=== PATIENT | male | born 1975 | race Caucasian/White ===

== ENCOUNTER 2021-12-19 17:22 | Inpatient (IN) ==
[2021-12-19] MEDS ORDERED: Ipratropium/Albuterol Neb 3 ML IH ONE (17:55)
[2021-12-19] MEDS ORDERED: GuaiFENesin Liq 200 MG/10 ML UDC PO ONE (17:56)
[2021-12-19] MEDS ORDERED: Iopamidol - 370 500 ML MLS IVP ONE ×2 (17:56→17:57)
[2021-12-19] MEDS ORDERED: Ondansetron 4 MG/2 ML VIAL IVP ONE (17:58)
[2021-12-19 18:11] LABS: Basophils # 0.1 K/mcL (0.0-0.2); Basophils % 0.4 %; Eosinophils # 0.1 K/mcL (0.0-0.6); Eosinophils % 0.9 %; Hematocrit 51.8 % (37.5-50.1); Immature Granulocytes % 0.4 % (0-4); Lymphocytes # 1.8 K/mcL (0.6-4.6); Lymphocytes % 13.1 %; Mean Corpuscular HGB Conc 32.8 g/dL (31.6-35.5); Mean Corpuscular Hemoglobin 32.1 pg (28.0-33.3); Mean Corpuscular Volume 97.9 fL (83.0-100.0); Mean Platelet Volume 9.2 fL (9.4-12.4); Monocytes # 1.2 K/mcL (0.0-1.3); Monocytes % 9.1 %; Neutrophils # 10.2 K/mcL (1.6-8.9); Platelet Count 522 K/mcL (140-400); Red Blood Count 5.29 M/mcL (4.19-5.50); Segmented Neutrophils % 76.1 %; White Blood Count 13.4 K/mcL (4.3-11.1)
[2021-12-19 18:26] LABS: Calcium 8.4 mg/dL (8.6-10.3)
[2021-12-19 18:36] LABS: Troponin I 1.31 ng/mL (< 0.04)
[2021-12-19] MEDS ORDERED: cefTRIAXone 2,000 MG in 0.9 % Sodium Chloride 20 ML IVP ONE (19:52)
[2021-12-19] MEDS ORDERED: Azithromycin 500 MG in 0.9 % Sodium Chloride 250 ML IVPB ONE (19:52)
[2021-12-19] MEDS ORDERED: Aspirin 325 MG TABLET PO ONE (19:58)
[2021-12-19 20:05] LABS: Adenovirus Not Detected (Not Detect); Bordetella Pertussis Not Detected (Not Detect); Chlamydophila pneumoniae Not Detected (Not Detect); Coronavirus 229E Not Detected (Not Detect); Coronavirus HKU1 Not Detected (Not Detect); Coronavirus NL63 Not Detected (Not Detect); Coronavirus OC43 Not Detected (Not Detect); Human Metapneumovirus Not Detected (Not Detect); Human Rhinovirus/Enterovirus Not Detected (Not Detect); Influenza A Subtype 2009 H1 Not Detected (Not Detect); Influenza B Not Detected (Not Detect); Mycoplasma pneumoniae Not Detected (Not Detect); Parainfluenza Virus 1 Not Detected (Not Detect); Parainfluenza Virus 2 Not Detected (Not Detect); Parainfluenza Virus 3 Not Detected (Not Detect); Parainfluenza Virus 4 Not Detected (Not Detect); Respiratory Syncytial Virus Not Detected (Not Detect); SARS-CoV-2 Not Detected (Not Detect)
[2021-12-19] MEDS ORDERED: Melatonin 3 MG TABLET PO PRN (21:56)
[2021-12-19] MEDS ORDERED: Acetaminophen 325 MG TABLET PO PRN (21:56)
[2021-12-19] MEDS ORDERED: Furosemide 40 MG/4 ML VIAL IVP ONE (21:56)
[2021-12-19] MEDS ORDERED: Naloxone 0.4 MG/ML INJ IVP PRN (21:56)
[2021-12-19] MEDS ORDERED: Ondansetron 4 MG/2 ML VIAL IVP PRN (21:56)
[2021-12-19] MEDS ORDERED: GuaiFENesin/Codeine Oral Soln 5 ML UDC PO PRN (22:31)
[2021-12-19 23:10] LABS: INR 1.5; Prothrombin Time 16.4 Seconds (9.4-12.1)
[2021-12-19 23:12] LABS: Activated Partial Thrombo Time 28.4 Seconds (26.0-36.0)
[2021-12-20 04:47] LABS: Basophils # 0.1 K/mcL (0.0-0.2); Basophils % 0.4 %; Eosinophils # 0.1 K/mcL (0.0-0.6); Eosinophils % 0.9 %; Hematocrit 48.2 % (37.5-50.1); Immature Granulocytes % 0.4 % (0-4); Lymphocytes # 1.8 K/mcL (0.6-4.6); Mean Corpuscular HGB Conc 31.7 g/dL (31.6-35.5); Mean Corpuscular Hemoglobin 31.2 pg (28.0-33.3); Mean Corpuscular Volume 98.2 fL (83.0-100.0); Mean Platelet Volume 9.1 fL (9.4-12.4); Monocytes # 1.3 K/mcL (0.0-1.3); Monocytes % 11.2 %; Neutrophils # 8.2 K/mcL (1.6-8.9); Platelet Count 439 K/mcL (140-400); Red Blood Count 4.91 M/mcL (4.19-5.50); Red Cell Distribution Width 14.2 % (11.5-14.5); Segmented Neutrophils % 71.1 %; White Blood Count 11.5 K/mcL (4.3-11.1)
[2021-12-20 04:49] LABS: Estimated Average Glucose 120 mg/dl; Hemoglobin A1C 5.8 %
[2021-12-20 04:52] LABS: Hemoglobin 15.3 g/dL (12.9-16.9)
[2021-12-20 05:06] LABS: Albumin 3.7 g/dL (3.5-5.7); Albumin/Globulin Ratio 1.3 (1.1-2.2); Calcium 8.7 mg/dL (8.6-10.3); Chol/HDL Ratio 5.6 (0-4.9); Globulin 2.8 g/dL (2.4-3.5); Magnesium 2.1 mg/dL (1.6-2.6); Phosphorous 3.3 mg/dL (2.7-4.5); Potassium 4.3 mEq/L (3.5-5.1); Total Protein 6.5 g/dL (6.4-8.9)
[2021-12-20 05:08] LABS: INR 1.3; Prothrombin Time 14.9 Seconds (9.4-12.1)
[2021-12-20 05:10] LABS: Activated Partial Thrombo Time 28.5 Seconds (26.0-36.0)
[2021-12-20] MEDS: cefTRIAXone 1,000 MG in 0.9 % Sodium Chloride 10 ML IVP SCH (08:57)
[2021-12-20] MEDS: Aspirin 81 MG TAB.CHEW PO SCH (08:58)
[2021-12-20] MEDS: Azithromycin 250 MG TABLET PO SCH (09:31)
[2021-12-20] MEDS: Furosemide 40 MG/4 ML VIAL IVP SCH ×2 (12:26→21:48)
[2021-12-20] MEDS: Albumin 25% 25gram/100mL 25 GM/100 ML IV.SOLN IVPB SCH ×2 (12:27→22:52)
[2021-12-20] MEDS: *HR* Heparin 5,000 UNIT/ML VIAL SQ SCH (17:09)
[2021-12-20 18:08] LABS: Amphetamine Screen,Urine Negative ng/mL (Cutoff=1000); Barbiturate Screen,Urine Negative ng/mL (Cutoff=200); Benzodiazepines Screen,Urine Negative ng/mL (Cutoff=200); Cannabinoid Screen,Urine Negative ng/mL (Cutoff = 50); Cocaine Screen,Urine Negative ng/mL (Cutoff= 300); Creatinine,Urine 84 mg/dL; Opiate Screen,Urine Negative ng/mL (Cutoff=300); Phencyclidine Screen,Urine Negative ng/mL (Cutoff=25); Sodium, Urine 71.7 mEq/L
[2021-12-20 18:17] LABS: Bilirubin,Urine Negative (Negative); Blood,Urine Negative (Negative); Clarity,Urine Clear (Clear); Color,Urine Light-Yellow (Yellow); Glucose,Urine (UA) Normal (Normal); Hyaline Casts,Urine Few per lpf (None Seen); Ketones,Urine Negative (Negative); Leukocyte Esterase,Urine Negative (Negative); Nitrite,Urine Negative (Negative); Protein,Urine Trace mg/dL (Neg-Trace); RBC,Urine 0-3 per hpf (0-3); Specific Gravity,Urine 1.015 (1.010-1.025); Squamous Epithelial Cell,Urine Few per hpf (None-Few); WBC,Urine 0-3 per hpf (0-3)
[2021-12-21 04:51] LABS: Basophils # 0.1 K/mcL (0.0-0.2); Basophils % 0.8 %; Eosinophils # 0.1 K/mcL (0.0-0.6); Eosinophils % 1.4 %; Hematocrit 46.7 % (37.5-50.1); Hemoglobin 14.8 g/dL (12.9-16.9); Immature Granulocytes % 0.4 % (0-4); Lymphocytes # 1.5 K/mcL (0.6-4.6); Lymphocytes % 18.4 %; Mean Corpuscular HGB Conc 31.7 g/dL (31.6-35.5); Mean Corpuscular Hemoglobin 31.4 pg (28.0-33.3); Mean Corpuscular Volume 98.9 fL (83.0-100.0); Monocytes # 0.7 K/mcL (0.0-1.3); Monocytes % 8.5 %; Neutrophils # 5.9 K/mcL (1.6-8.9); Platelet Count 432 K/mcL (140-400); Red Blood Count 4.72 M/mcL (4.19-5.50); Red Cell Distribution Width 14.3 % (11.5-14.5); Segmented Neutrophils % 70.5 %; White Blood Count 8.4 K/mcL (4.3-11.1)
[2021-12-21 05:14] LABS: Calcium 9.1 mg/dL (8.6-10.3); Magnesium 1.9 mg/dL (1.6-2.6); Phosphorous 2.8 mg/dL (2.7-4.5); Potassium 3.9 mEq/L (3.5-5.1)
[2021-12-21] MEDS: *HR* Heparin 5,000 UNIT/ML VIAL SQ SCH (06:25)
[2021-12-21] MEDS: Furosemide 40 MG/4 ML VIAL IVP SCH ×2 (08:15→17:16)
[2021-12-21] MEDS: cefTRIAXone 1,000 MG in 0.9 % Sodium Chloride 10 ML IVP SCH (08:15)
[2021-12-21] MEDS: Azithromycin 250 MG TABLET PO SCH (08:16)
[2021-12-21] MEDS: Aspirin 81 MG TAB.CHEW PO SCH (08:16)
[2021-12-21] MEDS: Albumin 25% 25gram/100mL 25 GM/100 ML IV.SOLN IVPB SCH ×2 (11:41→23:06)
[2021-12-21] MEDS ORDERED: Furosemide 40 MG/4 ML VIAL IVP SCH (13:30)
[2021-12-21 14:01] LABS: Troponin I 0.81 ng/mL (< 0.04)
[2021-12-21] MEDS ORDERED: Nitroglycerin 1 INCH/GM PACKET TP SCH (17:00)
[2021-12-21] MEDS: Metoprolol XL (24 HR) Succ 50 MG TAB.ER.24H PO SCH (20:13)
[2021-12-22] MEDS: Furosemide 40 MG/4 ML VIAL IVP SCH ×3 (00:03→17:13)
[2021-12-22] MEDS: Metoprolol XL (24 HR) Succ 50 MG TAB.ER.24H PO SCH (07:45)
[2021-12-22] MEDS: Spironolactone 12.5 MG TABLET PO SCH (07:45)
[2021-12-22] MEDS: Aspirin 81 MG TAB.CHEW PO SCH (07:46)
[2021-12-22] MEDS: Azithromycin 250 MG TABLET PO SCH (07:46)
[2021-12-22] MEDS: cefTRIAXone 1,000 MG in 0.9 % Sodium Chloride 10 ML IVP SCH (07:50)
[2021-12-22 08:55] LABS: Basophils # 0.1 K/mcL (0.0-0.2); Basophils % 0.5 %; Eosinophils # 0.1 K/mcL (0.0-0.6); Eosinophils % 0.8 %; Hematocrit 43.9 % (37.5-50.1); Hemoglobin 14.3 g/dL (12.9-16.9); Immature Granulocytes % 0.3 % (0-4); Lymphocytes # 0.9 K/mcL (0.6-4.6); Lymphocytes % 7.7 %; Mean Corpuscular HGB Conc 32.6 g/dL (31.6-35.5); Mean Corpuscular Hemoglobin 31.6 pg (28.0-33.3); Mean Corpuscular Volume 96.9 fL (83.0-100.0); Mean Platelet Volume 8.8 fL (9.4-12.4); Monocytes # 0.8 K/mcL (0.0-1.3); Monocytes % 6.6 %; Neutrophils # 9.7 K/mcL (1.6-8.9); Platelet Count 423 K/mcL (140-400); Red Blood Count 4.53 M/mcL (4.19-5.50); Red Cell Distribution Width 13.9 % (11.5-14.5); Segmented Neutrophils % 84.1 %; White Blood Count 11.6 K/mcL (4.3-11.1)
[2021-12-22 09:15] LABS: Calcium 8.9 mg/dL (8.6-10.3); Potassium 3.4 mEq/L (3.5-5.1)
[2021-12-22] MEDS: Albumin 25% 25gram/100mL 25 GM/100 ML IV.SOLN IVPB SCH ×3 (09:17→23:28)
[2021-12-22] MEDS ORDERED: *HR* Heparin 5,000 UNIT/ML VIAL IVP PRN ×2 (10:09)
[2021-12-22 11:43] LABS: Heparin anti-factor XA UFH < 0.04 IU/mL (0.30-0.70); INR 1.6; Prothrombin Time 17.6 Seconds (9.4-12.1)
[2021-12-22] MEDS: Heparin 25,000UNIT/250ML 1/2NS 25,000 UNIT/250 ML IV.SOLN IVC SCH ×2 (11:59→22:37)
[2021-12-22] MEDS ORDERED: carvediloL 6.25 MG TABLET PO ONE (15:15)
[2021-12-22] MEDS ORDERED: carvediloL 6.25 MG TABLET PO SCH (17:00)
[2021-12-22] MEDS: carvediloL 6.25 MG TABLET PO SCH (20:01)
[2021-12-22] MEDS: Ipratropium/Albuterol Neb 3 ML IH PRN (22:16)
[2021-12-23] MEDS: Furosemide 40 MG/4 ML VIAL IVP SCH ×4 (00:59→23:48)
[2021-12-23 03:28] LABS: Basophils # 0.1 K/mcL (0.0-0.2); Basophils % 0.6 %; Eosinophils # 0.1 K/mcL (0.0-0.6); Eosinophils % 1.1 %; Hematocrit 41.6 % (37.5-50.1); Hemoglobin 13.6 g/dL (12.9-16.9); Immature Granulocytes % 0.5 % (0-4); Lymphocytes # 1.5 K/mcL (0.6-4.6); Mean Corpuscular HGB Conc 32.7 g/dL (31.6-35.5); Mean Corpuscular Hemoglobin 31.4 pg (28.0-33.3); Mean Corpuscular Volume 96.1 fL (83.0-100.0); Mean Platelet Volume 8.8 fL (9.4-12.4); Monocytes # 0.8 K/mcL (0.0-1.3); Monocytes % 7.6 %; Platelet Count 407 K/mcL (140-400); Red Blood Count 4.33 M/mcL (4.19-5.50); Red Cell Distribution Width 13.8 % (11.5-14.5); Segmented Neutrophils % 76.2 %; White Blood Count 10.5 K/mcL (4.3-11.1)
[2021-12-23 03:47] LABS: Potassium 3.3 mEq/L (3.5-5.1)
[2021-12-23] MEDS: Spironolactone 12.5 MG TABLET PO SCH (07:36)
[2021-12-23] MEDS: carvediloL 6.25 MG TABLET PO SCH ×2 (07:36→18:00)
[2021-12-23] MEDS: Aspirin 81 MG TAB.CHEW PO SCH (07:36)
[2021-12-23] MEDS: cefTRIAXone 1,000 MG in 0.9 % Sodium Chloride 10 ML IVP SCH (07:37)
[2021-12-23] MEDS: Azithromycin 250 MG TABLET PO SCH (07:37)
[2021-12-23] MEDS: Albumin 25% 25gram/100mL 25 GM/100 ML IV.SOLN IVPB SCH ×3 (07:38→22:48)
[2021-12-23] MEDS: Heparin 25,000UNIT/250ML 1/2NS 25,000 UNIT/250 ML IV.SOLN IVC SCH ×2 (10:12→20:19)
[2021-12-24 05:20] LABS: Basophils # 0.1 K/mcL (0.0-0.2); Basophils % 0.5 %; Eosinophils # 0.2 K/mcL (0.0-0.6); Eosinophils % 1.6 %; Hematocrit 42.5 % (37.5-50.1); Hemoglobin 13.5 g/dL (12.9-16.9); Immature Granulocytes % 0.4 % (0-4); Lymphocytes # 1.6 K/mcL (0.6-4.6); Mean Corpuscular HGB Conc 31.8 g/dL (31.6-35.5); Mean Corpuscular Hemoglobin 31.1 pg (28.0-33.3); Mean Corpuscular Volume 97.9 fL (83.0-100.0); Mean Platelet Volume 9.3 fL (9.4-12.4); Monocytes # 0.8 K/mcL (0.0-1.3); Monocytes % 8.2 %; Neutrophils # 7.4 K/mcL (1.6-8.9); Platelet Count 379 K/mcL (140-400); Red Blood Count 4.34 M/mcL (4.19-5.50); Red Cell Distribution Width 13.9 % (11.5-14.5); Segmented Neutrophils % 73.3 %; White Blood Count 10.1 K/mcL (4.3-11.1)
[2021-12-24 05:25] LABS: Calcium 9.1 mg/dL (8.6-10.3); Phosphorous 3.8 mg/dL (2.7-4.5); Potassium 3.8 mEq/L (3.5-5.1)
[2021-12-24] MEDS: Heparin 25,000UNIT/250ML 1/2NS 25,000 UNIT/250 ML IV.SOLN IVC SCH ×2 (05:37→14:58)
[2021-12-24] MEDS ORDERED: Furosemide 40 MG/4 ML VIAL IVP SCH ×2 (08:00→17:00)
[2021-12-24] MEDS: cefTRIAXone 1,000 MG in 0.9 % Sodium Chloride 10 ML IVP SCH (08:39)
[2021-12-24] MEDS: Aspirin 81 MG TAB.CHEW PO SCH (08:39)
[2021-12-24] MEDS: Albumin 25% 25gram/100mL 25 GM/100 ML IV.SOLN IVPB SCH ×2 (08:39→15:00)
[2021-12-24] MEDS: carvediloL 6.25 MG TABLET PO SCH (08:40)
[2021-12-24] MEDS: Spironolactone 12.5 MG TABLET PO SCH (08:40)
[2021-12-24] MEDS: Azithromycin 250 MG TABLET PO SCH (08:40)
[2021-12-24] MEDS: carvediloL 25 MG TABLET PO SCH (17:33)
[2021-12-24] MEDS: hydrALAZINE 10 MG TABLET PO SCH (18:41)
[2021-12-25] MEDS: Albumin 25% 25gram/100mL 25 GM/100 ML IV.SOLN IVPB SCH ×4 (00:09→23:42)
[2021-12-25] MEDS: Heparin 25,000UNIT/250ML 1/2NS 25,000 UNIT/250 ML IV.SOLN IVC SCH ×2 (00:09→07:54)
[2021-12-25] MEDS: hydrALAZINE 10 MG TABLET PO SCH ×4 (00:09→17:20)
[2021-12-25 05:35] LABS: Basophils % 0.4 %; Eosinophils # 0.1 K/mcL (0.0-0.6); Eosinophils % 1.1 %; Hematocrit 43.8 % (37.5-50.1); Immature Granulocytes % 0.2 % (0-4); Lymphocytes # 1.2 K/mcL (0.6-4.6); Lymphocytes % 14.8 %; Mean Corpuscular Hemoglobin 31.5 pg (28.0-33.3); Mean Corpuscular Volume 98.4 fL (83.0-100.0); Mean Platelet Volume 9.3 fL (9.4-12.4); Monocytes # 0.6 K/mcL (0.0-1.3); Monocytes % 7.1 %; Neutrophils # 6.2 K/mcL (1.6-8.9); Platelet Count 346 K/mcL (140-400); Red Blood Count 4.45 M/mcL (4.19-5.50); Red Cell Distribution Width 14.2 % (11.5-14.5); Segmented Neutrophils % 76.4 %; White Blood Count 8.1 K/mcL (4.3-11.1)
[2021-12-25 05:54] LABS: Calcium 9.5 mg/dL (8.6-10.3); Magnesium 2.1 mg/dL (1.6-2.6); Potassium 4.1 mEq/L (3.5-5.1)
[2021-12-25] MEDS: Azithromycin 250 MG TABLET PO SCH (07:53)
[2021-12-25] MEDS: cefTRIAXone 1,000 MG in 0.9 % Sodium Chloride 10 ML IVP SCH (07:54)
[2021-12-25] MEDS: carvediloL 25 MG TABLET PO SCH ×2 (07:54→17:20)
[2021-12-25] MEDS: Aspirin 81 MG TAB.CHEW PO SCH (07:54)
[2021-12-25] MEDS ORDERED: 0.9 % Sodium Chloride 250 ML IV ONE (09:34)
[2021-12-25] MEDS ORDERED: carvediloL 6.25 MG TABLET PO ONE (12:58)
[2021-12-25] MEDS: *HR* Amiodarone 200 MG TABLET PO SCH ×2 (13:05→19:43)
[2021-12-25 14:58] LABS: Bacteria,Urine Few per hpf (None-Few); Bilirubin,Urine Negative (Negative); Blood,Urine Negative (Negative); Clarity,Urine Turbid (Clear); Color,Urine Yellow (Yellow); Glucose,Urine (UA) Normal (Normal); Hyaline Casts,Urine Many per lpf (None Seen); Ketones,Urine Trace mg/dL (Negative); Leukocyte Esterase,Urine Negative (Negative); Mucus,Urine Few per lpf (None-Few); Nitrite,Urine Negative (Negative); PH,Urine 5.5 pH Units (5.0-8.0); Protein,Urine 100 mg/dL (Neg-Trace); RBC,Urine 0-3 per hpf (0-3); Specific Gravity,Urine 1.022 (1.010-1.025); Squamous Epithelial Cell,Urine Few per hpf (None-Few); Urobilinogen,Urine Normal (Normal)
[2021-12-25 16:09] LABS: Calcium 9.5 mg/dL (8.6-10.3); Potassium 4.1 mEq/L (3.5-5.1)
[2021-12-26 00:41] LABS: Sodium, Urine 13.3 mEq/L
[2021-12-26 04:59] LABS: Basophils % 0.5 %; Eosinophils % 0.5 %; Hematocrit 43.9 % (37.5-50.1); Hemoglobin 13.8 g/dL (12.9-16.9); Immature Granulocytes % 0.4 % (0-4); Lymphocytes # 1.2 K/mcL (0.6-4.6); Mean Corpuscular HGB Conc 31.4 g/dL (31.6-35.5); Mean Corpuscular Hemoglobin 31.7 pg (28.0-33.3); Mean Corpuscular Volume 100.7 fL (83.0-100.0); Mean Platelet Volume 9.4 fL (9.4-12.4); Monocytes # 0.6 K/mcL (0.0-1.3); Monocytes % 7.7 %; Neutrophils # 6.4 K/mcL (1.6-8.9); Platelet Count 323 K/mcL (140-400); Red Blood Count 4.36 M/mcL (4.19-5.50); Red Cell Distribution Width 14.1 % (11.5-14.5); Segmented Neutrophils % 76.9 %; White Blood Count 8.4 K/mcL (4.3-11.1)
[2021-12-26 05:17] LABS: Calcium 9.7 mg/dL (8.6-10.3); Magnesium 2.2 mg/dL (1.6-2.6); Potassium 4.5 mEq/L (3.5-5.1)
[2021-12-26] MEDS: cefTRIAXone 1,000 MG in 0.9 % Sodium Chloride 10 ML IVP SCH (08:45)
[2021-12-26] MEDS: Aspirin 81 MG TAB.CHEW PO SCH (08:46)
[2021-12-26] MEDS: carvediloL 25 MG TABLET PO SCH ×2 (08:46→16:55)
[2021-12-26] MEDS: Albumin 25% 25gram/100mL 25 GM/100 ML IV.SOLN IVPB SCH ×2 (08:51→20:04)
[2021-12-26] MEDS: *HR* Amiodarone 200 MG TABLET PO SCH ×2 (09:00→20:03)
[2021-12-26 10:07] LABS: Phosphorous 4.8 mg/dL (2.7-4.5); Uric Acid 11.9 mg/dL (2.3-7.6)
[2021-12-26 10:20] LABS: Thyroid Stimulating Hormone 4.789 mcIU/mL (0.340-5.600)
[2021-12-26 11:51] LABS: Vitamin B12 786 pg/mL (250-1100)
[2021-12-26 11:52] LABS: Vitamin D 25 Hydroxy 20 ng/mL (30-80)
[2021-12-26 14:21] LABS: Hepatitis B Surface Antigen Nonreactive (Nonreactive)
[2021-12-26 14:52] LABS: Hepatitis A Antibody IgM Nonreactive (Nonreactive)
[2021-12-26 14:53] LABS: Hepatitis B Core IgM Nonreactive (Nonreactive)
[2021-12-26 14:54] LABS: Hepatitis C Virus Antibody Nonreactive (Nonreactive)
[2021-12-26] MEDS: Ipratropium/Albuterol Neb 3 ML IH PRN (21:04)
[2021-12-27 05:07] LABS: Basophils # 0.1 K/mcL (0.0-0.2); Basophils % 0.6 %; Eosinophils # 0.1 K/mcL (0.0-0.6); Eosinophils % 0.8 %; Hematocrit 41.5 % (37.5-50.1); Hemoglobin 13.6 g/dL (12.9-16.9); Immature Granulocytes % 0.4 % (0-4); Lymphocytes # 1.2 K/mcL (0.6-4.6); Lymphocytes % 13.6 %; Mean Corpuscular HGB Conc 32.8 g/dL (31.6-35.5); Mean Corpuscular Hemoglobin 32.1 pg (28.0-33.3); Mean Corpuscular Volume 97.9 fL (83.0-100.0); Mean Platelet Volume 9.5 fL (9.4-12.4); Monocytes # 0.7 K/mcL (0.0-1.3); Monocytes % 7.7 %; Neutrophils # 6.6 K/mcL (1.6-8.9); Platelet Count 299 K/mcL (140-400); Red Blood Count 4.24 M/mcL (4.19-5.50); Red Cell Distribution Width 14.1 % (11.5-14.5); Segmented Neutrophils % 76.9 %; White Blood Count 8.6 K/mcL (4.3-11.1)
[2021-12-27 05:30] LABS: Calcium 9.5 mg/dL (8.6-10.3); Magnesium 2.2 mg/dL (1.6-2.6); Potassium 4.1 mEq/L (3.5-5.1); Uric Acid 12.8 mg/dL (2.3-7.6)
[2021-12-27] MEDS: carvediloL 25 MG TABLET PO SCH ×2 (08:21→17:28)
[2021-12-27] MEDS: *HR* Amiodarone 200 MG TABLET PO SCH ×2 (08:21→20:26)
[2021-12-27] MEDS: cefTRIAXone 1,000 MG in 0.9 % Sodium Chloride 10 ML IVP SCH (08:21)
[2021-12-27] MEDS: Aspirin 81 MG TAB.CHEW PO SCH (08:21)
[2021-12-27] MEDS: Albumin 25% 25gram/100mL 25 GM/100 ML IV.SOLN IVPB SCH ×5 (08:22→22:37)
[2021-12-27] MEDS ORDERED: Albumin 25% 25gram/100mL 25 GM/100 ML IV.SOLN IVC SCH ×2 (11:45→12:00)
[2021-12-27] MEDS ORDERED: Ergocalciferol (VIT D2) 50,000 UNIT (1.25MG) CAP PO SCH (12:00)
[2021-12-28] MEDS: Albumin 25% 25gram/100mL 25 GM/100 ML IV.SOLN IVPB SCH ×4 (04:09→20:20)
[2021-12-28] MEDS: carvediloL 25 MG TABLET PO SCH ×2 (07:48→17:52)
[2021-12-28] MEDS: *HR* Amiodarone 200 MG TABLET PO SCH (07:48)
[2021-12-28] MEDS: Aspirin 81 MG TAB.CHEW PO SCH (07:48)
[2021-12-28] MEDS: cefTRIAXone 1,000 MG in 0.9 % Sodium Chloride 10 ML IVP SCH (07:49)
[2021-12-28 09:59] LABS: Calcium 9.8 mg/dL (8.6-10.3); Magnesium 2.3 mg/dL (1.6-2.6); Phosphorous 5.1 mg/dL (2.7-4.5); Potassium 4.1 mEq/L (3.5-5.1)
[2021-12-28] MEDS: Ipratropium/Albuterol Neb 3 ML IH SCH ×2 (15:24→20:22)
[2021-12-29] MEDS: Albumin 25% 25gram/100mL 25 GM/100 ML IV.SOLN IVPB SCH ×2 (03:08→16:58)
[2021-12-29] MEDS: Ipratropium/Albuterol Neb 3 ML IH SCH ×4 (04:33→21:27)
[2021-12-29 05:21] LABS: Calcium 8.9 mg/dL (8.6-10.3); Potassium 3.5 mEq/L (3.5-5.1)
[2021-12-29] MEDS: Aspirin 81 MG TAB.CHEW PO SCH (08:14)
[2021-12-29] MEDS: carvediloL 25 MG TABLET PO SCH ×2 (08:14→16:57)
[2021-12-29] MEDS: cefTRIAXone 1,000 MG in 0.9 % Sodium Chloride 10 ML IVP SCH (08:14)
[2021-12-29] MEDS: *HR* Acetylcysteine 20% 600 MG/3 ML ORAL SYRINGE PO SCH ×2 (11:01→20:19)
[2021-12-29 15:12] LABS: Alpha 2 Globulin (PEP) 0.72 g/dL (0.48-1.05); Beta Globulin (PEP) 0.55 g/dL (0.48-1.10)
[2021-12-30] MEDS: Albumin 25% 25gram/100mL 25 GM/100 ML IV.SOLN IVPB SCH ×4 (02:03→23:46)
[2021-12-30] MEDS: Ipratropium/Albuterol Neb 3 ML IH SCH ×4 (04:42→21:22)
[2021-12-30] MEDS: Aspirin 81 MG TAB.CHEW PO SCH (08:04)
[2021-12-30] MEDS: carvediloL 25 MG TABLET PO SCH ×2 (08:04→16:08)
[2021-12-30] MEDS: *HR* Acetylcysteine 20% 600 MG/3 ML ORAL SYRINGE PO SCH ×2 (08:05→20:27)
[2021-12-30] MEDS ORDERED: *HR* Heparin 10,000 UNIT/10 ML VIAL IV PRN (08:15)
[2021-12-30] MEDS ORDERED: 0.9 % Sodium Chloride 2,000 ML PRIME SCH (08:15)
[2021-12-30] MEDS ORDERED: 0.9 % Sodium Chloride 250 ML IVC PRN (08:15)
[2021-12-30 09:45] LABS: Hematocrit 41.3 % (37.5-50.1); Hemoglobin 13.5 g/dL (12.9-16.9); Mean Corpuscular HGB Conc 32.7 g/dL (31.6-35.5); Mean Corpuscular Hemoglobin 31.5 pg (28.0-33.3); Mean Corpuscular Volume 96.3 fL (83.0-100.0); Mean Platelet Volume 9.8 fL (9.4-12.4); Platelet Count 276 K/mcL (140-400); Red Blood Count 4.29 M/mcL (4.19-5.50); Red Cell Distribution Width 14.1 % (11.5-14.5); White Blood Count 7.2 K/mcL (4.3-11.1)
[2021-12-30 09:53] LABS: INR 1.5; Prothrombin Time 16.3 Seconds (9.4-12.1)
[2021-12-30 10:27] LABS: Protein/Creatinine Ratio,Urine 0.41 mg/mg (0.00-0.20)
[2021-12-30] MEDS ORDERED: Heparin 1,000 UNITS/500 mL 500 ML ONE (10:43)
[2021-12-30] MEDS ORDERED: Lidocaine/EPI 1:100k 1% 50 ML VIAL ONE (10:43)
[2021-12-30] MEDS ORDERED: ceFAZolin 2,000 MG in 0.9 % Sodium Chloride 100 ML IVPB ONE (10:46)
[2021-12-30] MEDS ORDERED: *HR* Heparin 5,000 UNIT/ML VIAL ONE (10:56)
[2021-12-30 10:58] LABS: IFE Reflexed NOT DONE
[2021-12-30] MEDS ORDERED: *HR* Midazolam HCl 2 MG/2 ML VIAL ONE (13:48)
[2021-12-30] MEDS ORDERED: *HR* FentaNYL (PF) 100 MCG/2 ML VIAL ONE (13:48)
[2021-12-30] MEDS ORDERED: *HR* Heparin 10,000 UNIT/10 ML VIAL ONE ×2 (13:49→15:11)
[2021-12-30] MEDS ORDERED: 0.9 % Sodium Chloride 2,000 ML ONE (13:49)
[2021-12-30] MEDS ORDERED: Nitroglycerin 1,000 MCG/5 ML VIAL IV ONE (13:49)
[2021-12-30] MEDS ORDERED: *HR* Ticagrelor 90 MG TABLET ONE (15:29)
[2021-12-30] MEDS ORDERED: Furosemide 40 MG/4 ML VIAL IVP ONE (15:53)
[2021-12-30] MEDS: amLODIPine 5 MG TABLET PO SCH (16:08)
[2021-12-31 00:09] LABS: INR 1.7; Prothrombin Time 18.5 Seconds (9.4-12.1)
[2021-12-31 00:11] LABS: Activated Partial Thrombo Time 29.6 Seconds (26.0-36.0)
[2021-12-31] MEDS: Ipratropium/Albuterol Neb 3 ML IH SCH ×4 (04:14→22:38)
[2021-12-31 04:49] LABS: Hematocrit 38.9 % (37.5-50.1); Hemoglobin 12.7 g/dL (12.9-16.9)
[2021-12-31 05:06] LABS: Calcium 9.8 mg/dL (8.6-10.3); Magnesium 2.2 mg/dL (1.6-2.6); Phosphorous 3.7 mg/dL (2.7-4.5); Potassium 3.8 mEq/L (3.5-5.1); Uric Acid 12.4 mg/dL (2.3-7.6)
[2021-12-31] MEDS ORDERED: *HR* Heparin 10,000 UNIT/10 ML VIAL IV PRN (08:08)
[2021-12-31] MEDS ORDERED: 0.9 % Sodium Chloride 250 ML IVC PRN (08:08)
[2021-12-31] MEDS: amLODIPine 5 MG TABLET PO SCH (15:11)
[2021-12-31] MEDS: Aspirin 81 MG TAB.CHEW PO SCH (15:11)
[2021-12-31] MEDS: *HR* Acetylcysteine 20% 600 MG/3 ML ORAL SYRINGE PO SCH ×2 (15:11→20:35)
[2021-12-31] MEDS: carvediloL 25 MG TABLET PO SCH ×2 (15:11→19:47)
[2021-12-31 17:39] LABS: INR 1.8; Prothrombin Time 19.8 Seconds (9.4-12.1)
[2022-01-01] MEDS: Albumin 25% 25gram/100mL 25 GM/100 ML IV.SOLN IVPB SCH (03:58)
[2022-01-01] MEDS: Ipratropium/Albuterol Neb 3 ML IH SCH ×4 (04:21→22:42)
[2022-01-01 05:28] LABS: Calcium 9.6 mg/dL (8.6-10.3); Phosphorous 2.8 mg/dL (2.7-4.5); Potassium 3.7 mEq/L (3.5-5.1)
[2022-01-01] MEDS: amLODIPine 5 MG TABLET PO SCH (10:25)
[2022-01-01] MEDS: carvediloL 25 MG TABLET PO SCH ×2 (10:25→17:01)
[2022-01-01] MEDS: *HR* Acetylcysteine 20% 600 MG/3 ML ORAL SYRINGE PO SCH ×2 (10:25→21:15)
[2022-01-01] MEDS: Aspirin 81 MG TAB.CHEW PO SCH (10:25)
[2022-01-01 12:12] LABS: Complement C3 101 mg/dL (87-200)
[2022-01-02] MEDS: Ipratropium/Albuterol Neb 3 ML IH SCH ×4 (03:14→22:28)
[2022-01-02 06:34] LABS: Magnesium 2.1 mg/dL (1.6-2.6); Potassium 4.4 mEq/L (3.5-5.1)
[2022-01-02] MEDS: Aspirin 81 MG TAB.CHEW PO SCH (10:26)
[2022-01-02] MEDS: amLODIPine 5 MG TABLET PO SCH (10:26)
[2022-01-02] MEDS: carvediloL 25 MG TABLET PO SCH ×2 (10:26→16:35)
[2022-01-02] MEDS: *HR* Acetylcysteine 20% 600 MG/3 ML ORAL SYRINGE PO SCH ×2 (10:26→22:03)
[2022-01-03] MEDS: Ipratropium/Albuterol Neb 3 ML IH SCH ×2 (04:24→09:51)
[2022-01-03 05:29] LABS: Calcium 9.9 mg/dL (8.6-10.3); Magnesium 1.9 mg/dL (1.6-2.6); Phosphorous 3.1 mg/dL (2.7-4.5); Potassium 4.2 mEq/L (3.5-5.1)
[2022-01-03 06:41] VITALS: BP 133/90; PULSE 90; TEMP 97.6
[2022-01-03] MEDS ORDERED: Cholecalciferol (D-3) 1,000 UNIT (25MCG) TABLET PO SCH (09:00)
[2022-01-03] MEDS: *HR* Acetylcysteine 20% 600 MG/3 ML ORAL SYRINGE PO SCH (09:24)
[2022-01-03] MEDS: carvediloL 25 MG TABLET PO SCH (09:25)
[2022-01-03] MEDS: amLODIPine 5 MG TABLET PO SCH (09:26)
[2022-01-03] MEDS: Aspirin 81 MG TAB.CHEW PO SCH (09:26)
[2022-01-03 12:07] VITALS: O2SAT 96
[2022-01-04 13:24] LABS: ANA IgG by ELISA NONE DETECTED (None Detected); Kappa Qnt Free Light Chains 29.29 mg/L (3.30-19.40); Lambda Qnt Free Light Chains 24.68 mg/L (5.71-26.30)
[2022-01-04 13:32] LABS: Serine Protease-3 Antibody 3 AU/mL (0-19)
[2022-01-04 22:56] LABS: Alpha 2 Globulin (PEP) 0.73 g/dL (0.48-1.05); Beta Globulin (PEP) 0.57 g/dL (0.48-1.10)
[2022-01-05 10:13] LABS: IFE Reflexed NOT DONE
== END 2022-01-03 12:04 | disposition home or self-care (01) | DRG 246 ==
LOC: EMEROOARM 17:22 → 3ANU 17:22 → SUATTDRO 21:23 → 3ANU 22:19 → SUATTDRO 12-20 16:10 → 2NENU 12-21 17:13 → 2NNU 12-21 19:25 → 2ANU 12-31 21:36
PROVIDERS: ADMIT Internal Medicine; ATTEND Student in an Organized Health Care Education/Training Program